=== PATIENT | female | born 1960 | race African-American/Black ===

== ENCOUNTER 2018-05-10 07:52 | Outpatient (CLI) | payer OTHER | END 2018-05-10 07:53 | disposition home or self-care (01) | LOC: BICMAMMO 07:52 | PROVIDERS: ATTEND Family Medicine | DX: Z12.31 Encounter for screening mammogram for malignant neoplasm of breast (principal) | CPT/HCPCS: 77063; 77067 ==

== ENCOUNTER 2018-05-30 09:12 | Outpatient (CLI) | payer OTHER | END 2018-05-30 09:13 | disposition home or self-care (01) | LOC: BICMAMMO 09:12 | PROVIDERS: ATTEND Family Medicine | DX: R92.1 Mammographic calcification found on diagnostic imaging of breast (principal) | CPT/HCPCS: G0279 ==

== ENCOUNTER → 2018-06-14 | Day surgery (SDC) | payer OTHER ==
--- NOTE | 2018-06-14 10:40 | MMO ---
STEREOTACTIC GUIDED BIOPSY RIGHT BREAST MICROCALCIFICATIONS SURGICAL SPECIMEN MAMMOGRAPHY RIGHT DIAGNOSTIC MAMMOGRAM POST BIOPSY: History: Abnormal mammogram. Microcalcifications. FINDINGS: After explaining the procedure and answering all questions, the patient was placed on the biopsy tabl e in prone position. Multiple attempts to made to visualize the microcalcification cluster at the sup erior lateral aspect of the breast. Difficulty was encountered due to size of the patient's breast. A cluster of microcalcifications is visualized from the superior approach. Sterile technique, buffered local anesthesia, stereotactic guidance, and a superior approach were used to then carefully advance an 18 gauge vacuum assisted biopsy needle into the cluster of microcalcifications. Position was conf irmed with stereotactic imaging. A total of 12 specimens were obtained and eventually submitted to pa thology for evaluation. Localization clip was placed in the biopsy bed. Surgical specimen mammography shows microcalcifications in the sample. Post procedure imaging showed the clip to be at the far anterior aspect of the breast, not at the exp ected location. The microcalcification cluster within the deeper superolateral aspect of the right br east remains. These findings were discussed with the patient. Decision was made to precede with re-biopsy of the mi crocalcifications. Now with the original biopsy site available as a landmark, the cluster at the superolateral aspect of the breast was able to be visualized. Sterile technique, buffered local anesthesia, stereotactic jonel dance and a superior approach were used to repeat the procedure and obtain microcalcifications. Local ization clip was placed. Surgical specimen mammography shows microcalcifications. Post procedure imag ing shows good clip placement. Most of the calcifications have been removed. Patient tolerated the procedure well and was dismissed in good condition. IMPRESSION: Technically successful stereotactic guided biopsy right breast microcalcifications. The more superola teral and posterior marker indicates the region of originally intended microcalcification cluster alvin ple. Pathology is pending. POS: [facility]
== END ==
LOC: MAMMO 07:00
PROVIDERS: ATTEND Family Medicine
PROC: 0HBT3ZX Excision of Right Breast, Percutaneous Approach, Diagnostic (ICD-10-PCS; principal; 2018-06-14)
DX: N60.11 Diffuse cystic mastopathy of right breast (principal); R92.0 Mammographic microcalcification found on diagnostic imaging of breast
CPT/HCPCS: 19081; 76098; 88305; 89060

== ENCOUNTER 2019-05-12 09:01 | Outpatient (CLI) | payer OTHER ==
--- NOTE | 2019-05-12 10:54 | MMO ---
Bilateral MAMMO Bilat Screen [facility]. CLINICAL HISTORY: Patient is 59 years old and is seen for screening. The patient has no family history of breast cancer. The patient has no personal history of cancer. The patient has a history of right Stereotatic Biopsy in June, - benign. VIEWS: The views performed were: bilateral craniocaudal with tomosynthesis and bilateral mediolateral oblique with tomosynthesis. FILMS COMPARED: The present examination has been compared to prior imaging studies performed at [facility] on 05/10/2018 and 05/30/2018, and at [facility] on 03/23/2015 and 06/12/2016. This study has been interpreted with the assistance of computer-aided detection. MAMMOGRAM FINDINGS: The breasts are almost entirely fat. Right biopsy clips. There are no suspicious masses, suspicious calcifications, or new areas of architectural distortion. IMPRESSION: THERE IS NO MAMMOGRAPHIC EVIDENCE OF MALIGNANCY. A ROUTINE FOLLOW-UP MAMMOGRAM IN 1 YEAR IS RECOMMENDED. THE RESULTS OF THIS EXAM WERE SENT TO THE PATIENT. ACR BI-RADS Category 2 - Benign finding MAMMOGRAPHY NOTE: 1. A negative mammogram report should not delay a biopsy if a dominant of clinically suspicious mass is present. 2. Approximately 10% to 15% of breast cancers are not detected by mammography. 3. Adenosis and dense breasts may obscure an underlying neoplasm. Reported by: TAHIRA SERRANO MD Electonically Signed: [id number]
== END 2019-05-12 09:02 | disposition home or self-care (01) ==
LOC: BICMAMMO 09:01
PROVIDERS: ATTEND Family Medicine
DX: Z12.31 Encounter for screening mammogram for malignant neoplasm of breast (principal); Z91.89 Other specified personal risk factors, not elsewhere classified
CPT/HCPCS: 77063; 77067